=== PATIENT | female | born 1980 | race Caucasian/White ===

== ENCOUNTER 2025-03-23 06:26 | Day surgery (SDC) | payer BC ==
[2025-03-23] VITALS (8 sets, daily range): BP systolic 92–110; BP diastolic 45–55
[~2025-03-23] VITALS: Ht 157.5 cm; Wt 67.0 kg
[~2025-03-23 06:26] MED LIST: ALPRAZOLAM0.5 M1 PO; ESTARYLLA 0.251 EACH PO; Inderal40 MG PO; LAMOTRIGINE ER100 MG PO; NEURONTIN300 MG PO; ONDA4ODT MM; OXYCODONE-ACET1 EAC3 PO; QUETIAPINE FUMA5012 PO; TRAM50 PO; TRAZ100 PO; ZOLOFT25 MG PO; ZOLP5 PO
[2025-03-23] MEDS ORDERED: NS 1,000 ML IV ONE ×2 (07:16→07:28)
[2025-03-23] MEDS ORDERED: NS 250 ML IV ONE ×2 (07:27→07:37)
[2025-03-23] MEDS ORDERED: Heparin Sodium 1000 Units/ML 10ML MDV ONE (07:28)
[2025-03-23 07:36] LABS: BASOPHILS ABSOLUTE AUTO 0.14 K/mm3 (0.00-0.23); BASOPHILS PERCENT AUTO 2 % (0-2); EOSINOPHILS ABSOLUTE AUTO 0.42 K/mm3 (0.00-0.68); EOSINOPHILS PERCENT AUTO 6 % (0-6); Hematocrit 34.3 % (33.0-51.0); Hemoglobin 11.1 g/dL (11.5-16.0); IMMATURE GRAN ABSOLUTE AUTO 0.06 K/mm3 (0.00-0.10); IMMATURE GRAN PERCENT AUTO 1 % (0-1); LYMPHOCYTES ABSOLUTE AUTO 2.48 K/mm3 (0.84-5.20); LYMPHOCYTES PERCENT AUTO 34 % (21-46); MONOCYTES ABSOLUTE AUTO 0.67 K/mm3 (0.16-1.47); MONOCYTES PERCENT AUTO 9 % (4-13); Mean Corpuscular HGB 31.2 pg (26.0-34.0); Mean Corpuscular HGB Conc 32.4 g/dL (31.5-36.5); Mean Corpuscular Volume 96 fL (80-100); Mean Platelet Volume 9.5 fL (9.1-12.4); NEUTROPHILS ABSOLUTE AUTO 3.62 K/mm3 (1.96-9.15); NEUTROPHILS PERCENT AUTO 49 % (41-73); Platelet Count 315 K/mm3 (150-400); RDW Coefficient Variation 12.7 % (11.7-14.2); RDW Standard Deviation 44.9 fL (35.1-46.3); Red Blood Cell Count 3.56 M/mm3 (3.80-5.20); White Blood Cell Count 7.39 K/mm3 (4.00-11.30)
[2025-03-23 07:45] LABS: Bun/Creatinine Ratio 14.8 (12.0-20.0); Calcium, Blood 8.8 mg/dL (8.5-10.1); Creatinine, Blood 0.88 mg/dL (0.40-1.00); Potassium, Blood 3.6 mmol/L (3.5-5.5)
[2025-03-23 07:49] LABS: International Normalized Ratio 0.97; Prothrombin Time Results 10.7 Sec (9.7-11.5)
--- NOTE | 2025-03-23 07:52 | NUR ---
PATIENT ADMITTED TO FOR PELVIC VENOGRAM W/ POSSIBLE INTERVENTION WITH DR HOYOS. PT SINUS BRADYCARDIA (BASELINE) IN THE 50'S. PATIENT HYPOTENSIVE WITH MAP BETWEEN 60-65. PATIENT STATES SHE NORMALLY RUNS LOWER AND IS ASYMPTOMATIC, DENIES DIZZINESS. PT C/O CHRONIC LEG AND PELVIC PAIN. PAIN TO LEGS AND PELVIC AREA 02/02. JO Bautista RN UPDATED ON VITALS HE WILL BE IN THE PROCEDURE WITH PATIENT. LABS DRAWN THIS AM. AWAITING DR HOYOS.
[2025-03-23] MEDS ORDERED: Midazolam HCl 1MG / ML 2ML Vial ONE (08:22)
[2025-03-23] MEDS ORDERED: FentaNYL Citrate 50 MCG/ML 2 ML Injection ONE (08:23)
--- NOTE | 2025-03-23 09:44 | NUR ---
PATIENT BACK FROM PROCEDURE TO RECOVERY ROOM AT 0939 S/P PELVIC VENOGRAM WITH COILS PLACED. PATIENT AWAKE BUT DROWSY. DENIES C/O PAIN. BP LOW AT 99/55 W MAP 68; AT BASELINE. PT DENIES DIZZINESS, NAUSEA. RIGHT GROIN SITE W VENOUS ACCESS WNL. SOFT WITHOUT HEMATOMA, BLEEDING, OR TENDERNESS.
--- NOTE | 2025-03-23 11:24 | NUR ---
1VERBAL AND WRITTEN DISCHARGE INFORMATION GIVEN TO PATIENT AND PT'S WITH CLEAR UNDERSTANDING. PT ATE 100% BREAKFAST AND TOLERATED FLUIDS. PT UP TO BATHROOM WITHOUT ISSUES, FRANCISCO WELL. BP ON LOW SIDE, BUT BASELINE TO PRE PROCEDURE. PT DENIES ANY SYMPTOMS OF DIZZINESS WHILE AMBULATORY. RIGHT GROIN SITE REMAINS WNL W 2+ PULSES TO BILAT DP/PT. NOTE SENT HOME WITH PATIENT FOR LIGHT DUTY X ONE WEEK, SIGNED BY DR HOYOS. FOLLOW UP TO BE COMPLETED AFTER VEIN PROCEDURES COMPLETE PER DR HOYOS. OFFICE WILL TRY AND MOVE VEIN PROCEDURES UP PER DR HOYOS. PATIENT IS TO CALL OFFICE IF SHE HAS ANY PROBLEMS OR CONCERNS. NO CHANGES TO MEDICATIONS. PT DC'D IN STABLE CONDITION AT 1109 VIA WHEELCHAIR; PT'S DRIVING PT HOME.
== END 2025-03-23 11:41 | disposition home or self-care (01) ==
LOC: MHTC 06:26
PROVIDERS: Radiology Diagnostic Radiology
DX: N94.89 Other specified conditions associated with female genital organs and menstrual cycle (principal); I87.2 Venous insufficiency (chronic) (peripheral); I83.893 Varicose veins of bilateral lower extremities with other complications; M19.90 Unspecified osteoarthritis, unspecified site; Z79.899 Other long term (current) drug therapy
CPT/HCPCS: 37241; 75820; 75831; 76937; 80048; 85025; 85610; 99152; 99153; C1769; C1887; C1894; J1644; J2250; J3010; J7030; J7050; Q9967